=== PATIENT | male | born 1955 | race Caucasian/White ===

== ENCOUNTER 2020-06-03 13:07 | Inpatient (IN) ==
[2020-06-03] MEDS ORDERED: *HR* LORazepam 0.5 MG TABLET PO PRN (16:55)
[2020-06-03] MEDS: Melatonin 3 MG TABLET PO PRN (19:45)
[2020-06-03] MEDS: PHENobarbitaL 32.4 MG TABLET PO SCH (19:45)
[2020-06-03] MEDS: Lactulose Oral Soln 20 GM/30 ML UDC PO SCH (19:45)
[2020-06-03] MEDS: levETIRAcetam 250 MG TABLET PO SCH (19:45)
[2020-06-03] MEDS ORDERED: *HR* LORazepam 2 MG/ML VIAL ONE (20:28)
[2020-06-03] MEDS ORDERED: *HR* LORazepam 2 MG/ML VIAL IVP ONE (20:39)
[2020-06-03] MEDS: *HR* Rivaroxaban 15 MG TABLET PO SCH (22:57)
[2020-06-04] MEDS ORDERED: *HR* LORazepam 2 MG/ML VIAL IVP ONE (03:22)
[2020-06-04 07:23] LABS: Basophils % 0.5 %; Eosinophils # 0.4 K/mcL (0.0-0.6); Eosinophils % 4.8 %; Hematocrit 37.5 % (37.5-50.1); Hemoglobin 12.6 g/dL (12.9-16.9); Immature Granulocytes % 0.5 % (0-4); Lymphocytes # 2.2 K/mcL (0.6-4.6); Lymphocytes % 28.6 %; Mean Corpuscular HGB Conc 33.6 g/dL (31.6-35.5); Mean Corpuscular Volume 92.4 fL (83.0-100.0); Mean Platelet Volume 10.5 fL (9.4-12.4); Monocytes # 0.7 K/mcL (0.0-1.3); Monocytes % 8.6 %; Neutrophils # 4.4 K/mcL (1.6-8.9); Platelet Count 280 K/mcL (140-400); Red Blood Count 4.06 M/mcL (4.19-5.50); White Blood Count 7.7 K/mcL (4.3-11.1)
[2020-06-04 07:36] LABS: BUN/Creatinine Ratio 15 (6-26); Blood Urea Nitrogen 10 mg/dL (8-23); Calcium 9.4 mg/dL (8.6-10.3); Carbon Dioxide 23 mEq/L (23-29); Chloride 103 mEq/L (98-107); Glucose 97 mg/dL (70-105); Osmolality,Calculated 281 (280-300); Potassium 3.4 mEq/L (3.5-5.1); Sodium 136 mEq/L (136-145); eGFR For African Americans > 60 (> 60); eGFR For Non-African Americans > 60 (> 60)
[2020-06-04 07:38] LABS: Alanine Aminotransferase 27 Units/L (7-52); Albumin 3.6 g/dL (3.5-5.7); Albumin/Globulin Ratio 1.1 (1.1-2.2); Alkaline Phosphatase 111 Units/L (34-104); Aspartate Amino Transferase 28 Units/L (13-39); BUN/Creatinine Ratio 15 (6-26); Bilirubin,Total 0.3 mg/dL (0.3-1.0); Blood Urea Nitrogen 10 mg/dL (8-23); Calcium 9.4 mg/dL (8.6-10.3); Carbon Dioxide 24 mEq/L (23-29); Chloride 103 mEq/L (98-107); Globulin 3.4 g/dL (2.4-3.5); Glucose 96 mg/dL (70-105); Osmolality,Calculated 281 (280-300); Potassium 3.4 mEq/L (3.5-5.1); Sodium 136 mEq/L (136-145); eGFR For African Americans > 60 (> 60); eGFR For Non-African Americans > 60 (> 60)
[2020-06-04] MEDS: Thiamine (B-1) 100 MG TABLET PO SCH (09:36)
[2020-06-04] MEDS: Folic Acid 1 MG TABLET PO SCH (09:36)
[2020-06-04] MEDS: levETIRAcetam 250 MG TABLET PO SCH ×2 (09:36→20:23)
[2020-06-04] MEDS: Lactulose Oral Soln 20 GM/30 ML UDC PO SCH ×2 (09:36→20:22)
[2020-06-04] MEDS: PHENobarbitaL 32.4 MG TABLET PO SCH ×2 (09:37→20:23)
[2020-06-04] MEDS: Cholecalciferol (D-3) 1,000 UNIT (25MCG) TABLET PO SCH (09:37)
[2020-06-04] MEDS: Cyanocobalamin (B-12) 1,000 MCG TABLET PO SCH (09:37)
[2020-06-04] MEDS: *HR* Rivaroxaban 15 MG TABLET PO SCH ×2 (09:38→20:22)
[2020-06-04] MEDS: amLODIPine 5 MG TABLET PO SCH (09:38)
[2020-06-04] MEDS ORDERED: *HR* LORazepam 2 MG/ML VIAL IVP PRN (09:43)
[2020-06-04] MEDS: Acetaminophen 325 MG TABLET PO PRN ×2 (10:00→20:21)
[2020-06-04] MEDS ORDERED: levETIRAcetam 250 MG TABLET PO ONE (15:16)
[2020-06-04] MEDS ORDERED: PHENobarbitaL 32.4 MG TABLET PO ONE ×2 (15:17→19:11)
[2020-06-04] MEDS: Melatonin 3 MG TABLET PO PRN (22:21)
[2020-06-04] MEDS: *HR* LORazepam 0.5 MG TABLET PO PRN (22:21)
[2020-06-05] MEDS: *HR* Rivaroxaban 15 MG TABLET PO SCH ×2 (09:50→22:05)
[2020-06-05] MEDS: Cholecalciferol (D-3) 1,000 UNIT (25MCG) TABLET PO SCH (09:50)
[2020-06-05] MEDS: Thiamine (B-1) 100 MG TABLET PO SCH (09:50)
[2020-06-05] MEDS: amLODIPine 5 MG TABLET PO SCH (09:50)
[2020-06-05] MEDS: *HR* LORazepam 0.5 MG TABLET PO PRN ×2 (09:50→17:10)
[2020-06-05] MEDS: Folic Acid 1 MG TABLET PO SCH (09:51)
[2020-06-05] MEDS: PHENobarbitaL 32.4 MG TABLET PO SCH ×2 (09:51→22:04)
[2020-06-05] MEDS: Cyanocobalamin (B-12) 1,000 MCG TABLET PO SCH (09:51)
[2020-06-05] MEDS: levETIRAcetam 250 MG TABLET PO SCH ×2 (09:51→22:05)
[2020-06-05] MEDS: Lactulose Oral Soln 20 GM/30 ML UDC PO SCH ×2 (09:51→22:04)
[2020-06-05] MEDS: Acetaminophen 325 MG TABLET PO PRN (17:10)
[2020-06-05] MEDS ORDERED: *HR* LORazepam 2 MG/ML VIAL IVP ONE (18:51)
[2020-06-05] MEDS: Melatonin 3 MG TABLET PO PRN (22:05)
[2020-06-06] MEDS: *HR* LORazepam 0.5 MG TABLET PO PRN ×3 (00:26→16:24)
[2020-06-06] MEDS: Acetaminophen 325 MG TABLET PO PRN ×2 (05:18→16:24)
[2020-06-06 06:10] LABS: Basophils # 0.1 K/mcL (0.0-0.2); Basophils % 0.6 %; Eosinophils # 0.3 K/mcL (0.0-0.6); Hematocrit 38.4 % (37.5-50.1); Hemoglobin 12.7 g/dL (12.9-16.9); Immature Granulocytes % 0.5 % (0-4); Lymphocytes # 2.9 K/mcL (0.6-4.6); Lymphocytes % 35.3 %; Mean Corpuscular HGB Conc 33.1 g/dL (31.6-35.5); Mean Corpuscular Volume 93.7 fL (83.0-100.0); Mean Platelet Volume 11.2 fL (9.4-12.4); Monocytes # 0.7 K/mcL (0.0-1.3); Monocytes % 8.3 %; Neutrophils # 4.2 K/mcL (1.6-8.9); Platelet Count 299 K/mcL (140-400); Red Cell Distribution Width 15.2 % (11.5-14.5); Segmented Neutrophils % 51.3 %; White Blood Count 8.2 K/mcL (4.3-11.1)
[2020-06-06 06:30] LABS: BUN/Creatinine Ratio 17 (6-26); Blood Urea Nitrogen 13 mg/dL (8-23); Calcium 9.6 mg/dL (8.6-10.3); Carbon Dioxide 26 mEq/L (23-29); Chloride 100 mEq/L (98-107); Glucose 98 mg/dL (70-105); Osmolality,Calculated 276 (280-300); Potassium 3.8 mEq/L (3.5-5.1); Sodium 133 mEq/L (136-145); eGFR For African Americans > 60 (> 60); eGFR For Non-African Americans > 60 (> 60)
[2020-06-06] MEDS: amLODIPine 5 MG TABLET PO SCH (10:29)
[2020-06-06] MEDS: Thiamine (B-1) 100 MG TABLET PO SCH (10:29)
[2020-06-06] MEDS: PHENobarbitaL 32.4 MG TABLET PO SCH ×3 (10:30→21:48)
[2020-06-06] MEDS: Cholecalciferol (D-3) 1,000 UNIT (25MCG) TABLET PO SCH (10:30)
[2020-06-06] MEDS: *HR* Rivaroxaban 15 MG TABLET PO SCH ×2 (10:30→21:52)
[2020-06-06] MEDS: levETIRAcetam 250 MG TABLET PO SCH ×2 (10:30→21:47)
[2020-06-06] MEDS: Folic Acid 1 MG TABLET PO SCH (10:30)
[2020-06-06] MEDS: Cyanocobalamin (B-12) 1,000 MCG TABLET PO SCH (10:30)
[2020-06-06] MEDS: Lactulose Oral Soln 20 GM/30 ML UDC PO SCH ×2 (10:31→21:47)
[2020-06-06] MEDS: *HR* OxyCODONE Immed Rel 5 MG TABLET PO PRN (16:42)
[2020-06-06] MEDS: Melatonin 3 MG TABLET PO PRN (21:52)
[2020-06-07] MEDS: *HR* LORazepam 0.5 MG TABLET PO PRN ×2 (03:03→21:20)
[2020-06-07] MEDS: *HR* OxyCODONE Immed Rel 5 MG TABLET PO PRN ×2 (03:03→21:21)
[2020-06-07] MEDS: Cholecalciferol (D-3) 1,000 UNIT (25MCG) TABLET PO SCH (08:16)
[2020-06-07] MEDS: Lactulose Oral Soln 20 GM/30 ML UDC PO SCH ×2 (08:16→21:20)
[2020-06-07] MEDS: amLODIPine 5 MG TABLET PO SCH (08:16)
[2020-06-07] MEDS: *HR* Rivaroxaban 15 MG TABLET PO SCH ×2 (08:16→21:25)
[2020-06-07] MEDS: PHENobarbitaL 32.4 MG TABLET PO SCH ×3 (08:16→21:21)
[2020-06-07] MEDS: Folic Acid 1 MG TABLET PO SCH (08:17)
[2020-06-07] MEDS: Cyanocobalamin (B-12) 1,000 MCG TABLET PO SCH (08:17)
[2020-06-07] MEDS: levETIRAcetam 250 MG TABLET PO SCH ×2 (08:17→21:21)
[2020-06-07] MEDS: Thiamine (B-1) 100 MG TABLET PO SCH (08:17)
[2020-06-07] MEDS: Melatonin 3 MG TABLET PO PRN (21:21)
[2020-06-08 07:50] VITALS: BP 148/84
[2020-06-08] MEDS: Cyanocobalamin (B-12) 1,000 MCG TABLET PO SCH (09:05)
[2020-06-08] MEDS: Thiamine (B-1) 100 MG TABLET PO SCH (09:06)
[2020-06-08] MEDS: PHENobarbitaL 32.4 MG TABLET PO SCH (09:06)
[2020-06-08] MEDS: levETIRAcetam 250 MG TABLET PO SCH (09:06)
[2020-06-08] MEDS: *HR* LORazepam 0.5 MG TABLET PO PRN (09:06)
[2020-06-08] MEDS: Lactulose Oral Soln 20 GM/30 ML UDC PO SCH (09:06)
[2020-06-08] MEDS: amLODIPine 5 MG TABLET PO SCH (09:06)
[2020-06-08] MEDS: Folic Acid 1 MG TABLET PO SCH (09:06)
[2020-06-08] MEDS: *HR* OxyCODONE Immed Rel 5 MG TABLET PO PRN (09:06)
[2020-06-08] MEDS: *HR* Rivaroxaban 15 MG TABLET PO SCH (09:06)
[2020-06-08] MEDS: Cholecalciferol (D-3) 1,000 UNIT (25MCG) TABLET PO SCH (09:06)
[2020-06-08 11:13] LABS: Basophils # 0.1 K/mcL (0.0-0.2); Basophils % 0.5 %; Eosinophils # 0.2 K/mcL (0.0-0.6); Hematocrit 40.9 % (37.5-50.1); Hemoglobin 13.8 g/dL (12.9-16.9); Immature Granulocytes % 0.5 % (0-4); Lymphocytes # 3.2 K/mcL (0.6-4.6); Lymphocytes % 31.9 %; Mean Corpuscular HGB Conc 33.7 g/dL (31.6-35.5); Mean Corpuscular Volume 91.9 fL (83.0-100.0); Mean Platelet Volume 10.5 fL (9.4-12.4); Monocytes # 0.8 K/mcL (0.0-1.3); Neutrophils # 5.6 K/mcL (1.6-8.9); Platelet Count 346 K/mcL (140-400); Red Blood Count 4.45 M/mcL (4.19-5.50); Red Cell Distribution Width 14.6 % (11.5-14.5); Segmented Neutrophils % 57.1 %; White Blood Count 9.9 K/mcL (4.3-11.1)
[2020-06-08 11:34] LABS: Alanine Aminotransferase 36 Units/L (7-52); Albumin 3.9 g/dL (3.5-5.7); Alkaline Phosphatase 121 Units/L (34-104); Aspartate Amino Transferase 30 Units/L (13-39); BUN/Creatinine Ratio 18 (6-26); Bilirubin,Total 0.3 mg/dL (0.3-1.0); Blood Urea Nitrogen 14 mg/dL (8-23); Calcium 9.9 mg/dL (8.6-10.3); Carbon Dioxide 27 mEq/L (23-29); Chloride 99 mEq/L (98-107); Globulin 3.8 g/dL (2.4-3.5); Glucose 114 mg/dL (70-105); Osmolality,Calculated 283 (280-300); Potassium 4.3 mEq/L (3.5-5.1); Sodium 136 mEq/L (136-145); Total Protein 7.7 g/dL (6.4-8.9); eGFR For African Americans > 60 (> 60); eGFR For Non-African Americans > 60 (> 60)
[2020-06-08] MEDS ORDERED: *HR* LORazepam 2 MG/ML VIAL IVP ONE (11:37)
[2020-06-12] MEDS ORDERED: *HR* Rivaroxaban 10 MG TABLET PO SCH (09:00)
== END 2020-06-08 16:00 | disposition short-term general hospital (02) | DRG 560 ==
LOC: INPPIK 18:06
PROVIDERS: ADMIT Family Medicine; ATTEND Family Medicine